=== PATIENT | female | born 1990 | race African-American/Black ===

== ENCOUNTER 2019-03-06 18:41 | Emergency (ER) | payer OTHER ==
[~2019-03-06] VITALS: Ht 177.8 cm; Wt 127.4 kg
[2019-03-06 23:28] LABS: CHLAMYDIA DNA AMPLIFICATION NEGATIVE (NEGATIVE); GC DNA AMPLIFICATION NEGATIVE (NEGATIVE)
[2019-03-07] MEDS ORDERED: KETO10TAB PO (00:32)
[2019-03-07] MEDS ORDERED: CYCL5TAB PO (00:32)
[2019-03-07 00:41] VITALS: BP 123/64
== END 2019-03-07 00:41 | disposition home or self-care (01) ==
LOC: M ED 18:41
DX: S39.012A Strain of muscle, fascia and tendon of lower back, initial encounter (principal); N89.8 Other specified noninflammatory disorders of vagina; X58.XXXA Exposure to other specified factors, initial encounter; Y92.9 Unspecified place or not applicable; Y93.9 Activity, unspecified; Y99.9 Unspecified external cause status

== ENCOUNTER → 2019-10-21 | Outpatient (CLI) | payer OTHER ==
[~2019-10-21] MED LIST: CYCL5TAB PO; KETO10TAB PO
--- NOTE | 2019-10-21 19:06 | REP ---
PA and lateral chest: There are no comparisons. The lung linares are clear. The cardiac size is normal. The ray, mediastinum, and skeletal structures are unremarkable. Impression: Negative PA and lateral chest. Electronically Signed by Eric Connolly MD 10/21/2019 06:57 P
== END ==
LOC: M WUC 15:37
PROVIDERS: ATTEND Family Medicine Adult Medicine
DX: Z11.1 Encounter for screening for respiratory tuberculosis (principal)

== ENCOUNTER 2019-11-15 04:15 | Emergency (ER) | payer OTHER ==
[~2019-11-15] VITALS: Ht 170.2 cm; Wt 124.1 kg
[2019-11-15] MEDS ORDERED: TRAZ-252 PO (05:00)
[2019-11-15 05:32] VITALS: BP 129/64
== END 2019-11-15 05:33 | disposition home or self-care (01) ==
LOC: M ED 04:15
DX: G47.00 Insomnia, unspecified (principal)